=== PATIENT | male | born 1975 | race Hispanic/Latino ===

== ENCOUNTER 2023-11-07 10:06 | Observation (INO) | payer BC ==
[~2023-11-07] VITALS: Ht 165.1 cm; Wt 114.3 kg
[2023-11-07] MEDS ORDERED: SODIUM CHLORIDE FLUSH 10 ML SYR IV PRN (10:45)
[2023-11-07 10:57] LABS: BASOPHILS % 0.5 % (0.0-1.0); EOSINOPHILS # (AUTO) 0.2 (0.0-0.4); EOSINOPHILS % 3.1 % (0.0-6.0); HEMATOCRIT 42.6 % (38.2-49.6); HEMOGLOBIN 14.7 g/dL (14.0-18.0); LYMPHOCYTES # (AUTO) 1.9 (1.0-3.2); LYMPHOCYTES % 29.3 % (18.0-39.1); MEAN CORPUSCULAR HEMOGLOBIN 31.8 pg (28-32); MEAN CORPUSCULAR HGB CONC 34.5 g/dL (31-35); MEAN CORPUSCULAR VOLUME 92.2 fL (81-99); MONOCYTES # (AUTO) 0.4 (0.2-0.8); MONOCYTES % 5.9 % (4.4-11.3); NEUTROPHILS # (AUTO) 3.9 (2.1-6.9); NEUTROPHILS % 60.7 % (38.7-80.0); PLATELET COUNT 223 x10e3/uL (140-360); RED BLOOD COUNT 4.62 x10e6/uL (4.3-5.7); RED CELL DISTRIBUTION WIDTH 13.1 % (11.7-14.4); WHITE BLOOD COUNT 6.48 x10e3/uL (4.8-10.8)
[2023-11-07 11:16] LABS: ALBUMIN 3.6 g/dL (3.5-5.0); ALBUMIN/GLOBULIN RATIO 0.9 (0.8-2.0); ANION GAP 12.9 mmol/L (8-16); BILIRUBIN,TOTAL 0.3 mg/dL (0.2-1.2); CREATININE, SERUM 0.77 mg/dL (0.72-1.25); POTASSIUM 3.9 mmol/L (3.5-5.1); TOTAL PROTEIN 7.4 g/dL (6.5-8.1)
[2023-11-07 11:19] LABS: INR 0.86; PROTHROMBIN TIME 12.4 seconds (11.9-14.5)
[2023-11-07 11:20] LABS: PARTIAL THROMBOPLASTIN TIME 28.8 seconds (23.8-35.5)
[2023-11-07 11:22] LABS: TROPONIN I 0.008 ng/mL (0-0.300)
[2023-11-07] MEDS ORDERED: ONDANSETRON HCL INJ 2MG/ML 2ML 2 MG/ML VIAL IV PRN (12:30)
[2023-11-07] MEDS ORDERED: SODIUM CHLORIDE FLUSH 10 ML SYR INJ PRN (12:30)
[2023-11-07] MEDS: LORAZEPAM INJ 2 MG/ML VIAL IV ONE (13:31)
[2023-11-07] MEDS ORDERED: LORAZEPAM INJ 2 MG/ML VIAL ONE (13:31)
[2023-11-07 17:00] VITALS: BP 129/98; PULSE 82; RESP 19; TEMP 98; O2SAT 99
[2023-11-07] MEDS ORDERED: LORAZEPAM INJ 2 MG/ML VIAL IV PRN (19:45)
[2023-11-07 20:00] VITALS: BP 136/87; PULSE 110; RESP 20; TEMP 98.7; O2SAT 97
[2023-11-07] MEDS ORDERED: DEXTROSE 50% SYRINGE 50 ML IV PRN (20:00)
[2023-11-07] MEDS ORDERED: DIAZEPAM 5 MG TAB PO PRN (21:00)
[2023-11-07] MEDS: INSULIN REGULAR, HUMAN 100 UNIT/1 ML SQ SCH (21:00)
[2023-11-08] VITALS: BP 130/79; PULSE 103; RESP 20; TEMP 98; O2SAT 100
[2023-11-08 04:00] VITALS: BP 139/93; PULSE 97; RESP 20; TEMP 98; O2SAT 95
[2023-11-08 05:39] LABS: BASOPHILS # (AUTO) 0.1 (0.0-0.1); BASOPHILS % 0.7 % (0.0-1.0); EOSINOPHILS # (AUTO) 0.3 (0.0-0.4); EOSINOPHILS % 3.4 % (0.0-6.0); HEMATOCRIT 41.1 % (38.2-49.6); HEMOGLOBIN 13.7 g/dL (14.0-18.0); LYMPHOCYTES # (AUTO) 1.8 (1.0-3.2); MEAN CORPUSCULAR HEMOGLOBIN 31.1 pg (28-32); MEAN CORPUSCULAR HGB CONC 33.3 g/dL (31-35); MEAN CORPUSCULAR VOLUME 93.2 fL (81-99); MONOCYTES # (AUTO) 0.6 (0.2-0.8); NEUTROPHILS # (AUTO) 4.8 (2.1-6.9); NEUTROPHILS % 63.4 % (38.7-80.0); PLATELET COUNT 233 x10e3/uL (140-360); RED BLOOD COUNT 4.41 x10e6/uL (4.3-5.7); RED CELL DISTRIBUTION WIDTH 12.9 % (11.7-14.4); WHITE BLOOD COUNT 7.62 x10e3/uL (4.8-10.8)
[2023-11-08 06:02] LABS: ALBUMIN 3.4 g/dL (3.5-5.0); ALBUMIN/GLOBULIN RATIO 0.9 (0.8-2.0); ANION GAP 16.1 mmol/L (8-16); BILIRUBIN,TOTAL 0.4 mg/dL (0.2-1.2); CALCIUM 9.1 mg/dL (8.4-10.2); CREATININE, SERUM 0.89 mg/dL (0.72-1.25); POTASSIUM 4.1 mmol/L (3.5-5.1)
[2023-11-08 06:21] LABS: CHOL/HDL RATIO 4.7 (3.9-4.7)
[2023-11-08] MEDS: ASPIRIN 81 MG CHEW TAB PO ONE (08:21)
[2023-11-08] MEDS ORDERED: DIAZEPAM 5 MG TAB ONE ×2 (08:26→08:45)
[2023-11-08] MEDS ORDERED: ASPIRIN 325 MG TAB ONE ×2 (08:26→08:28)
[2023-11-08 08:49] VITALS: BP 120/78; PULSE 86; RESP 18; TEMP 98.4; O2SAT 100
[2023-11-08 08:52] VITALS: BP 120/78; PULSE 86; RESP 18; TEMP 98.4; O2SAT 100
[2023-11-08 09:48] LABS: FOLATE 12.9 ng/mL (7.0-15.4)
[2023-11-08] MEDS: ASPIRIN 325 MG TAB EC PO SCH (10:20)
[2023-11-08] MEDS: DIAZEPAM 5 MG TAB PO PRN (10:21)
[2023-11-08 11:55] VITALS: BP 144/97; PULSE 96; RESP 20; TEMP 98.6; O2SAT 97
[2023-11-08 15:25] VITALS: BP 132/76; PULSE 97; RESP 20; TEMP 97.7; O2SAT 100
[2023-11-08] MEDS ORDERED: LIPITOR20 MG PO (17:27)
[2023-11-08] MEDS ORDERED: ONDANSETRON HCL 4 MG ORAL DISINTEGRATING TAB PO PRN (18:15)
== END 2023-11-08 18:38 | disposition home or self-care (01) ==
LOC: ER 10:21 → ERHOLD 12:23 → MED/SURG3 14:45
PROVIDERS: ADMIT Family Medicine Adult Medicine; ATTEND Family Medicine Adult Medicine
DX: G50.8 Other disorders of trigeminal nerve (principal); I16.0 Hypertensive urgency; I11.9 Hypertensive heart disease without heart failure; E66.01 Morbid (severe) obesity due to excess calories; Z68.41 Body mass index [BMI] 40.0-44.9, adult; E11.65 Type 2 diabetes mellitus with hyperglycemia; F10.10 Alcohol abuse, uncomplicated; E78.00 Pure hypercholesterolemia, unspecified; I07.1 Rheumatic tricuspid insufficiency; Z11.52 Encounter for screening for COVID-19; Z79.899 Other long term (current) drug therapy
CPT/HCPCS: 36415 ×2; 70450; 70551; 71045; 80053 ×2; 80061; 82607; 82746; 82948 ×2; 83036; 83880; 84443; 84484; 85025 ×2; 85610; 85730; 92526 ×2; 92610; 93005; 93306; 93880; 94760; 99284; G0378 ×2; J2060; U0002